=== PATIENT | female | born 1995 | race Two or more races ===

== ENCOUNTER 2018-01-31 21:04 | Emergency (ER) | payer SELFPAY ==
[~2018-01-31] VITALS: Ht 170.2 cm; Wt 142.9 kg
[2018-01-31 21:21] VITALS: BP 109/42
== END 2018-01-31 23:13 | disposition left against medical advice (07) ==
LOC: ER 21:04
DX: R51 Headache (principal); Z53.21 Procedure and treatment not carried out due to patient leaving prior to being seen by health care provider